=== PATIENT | male | born 1945 | race Caucasian/White ===

== ENCOUNTER → 2018-05-25 | Outpatient (CLI) | payer OTHER, MEDICARE ==
[~2018-05-25] VITALS: Ht 185.4 cm; Wt 102.1 kg
[~2018-05-25] MED LIST: ADULT LOW DOSE81 MG PO; LIPITOR 20 MG T20 M1 PO; MULTIVITAMINS PO; PRILOSEC 20 MG20 MG PO; PRILOSEC OTC20 MG PO; TOPROL XL25 MG PO; VITAMIN D1000 UNI1 PO; XARELTO20 MG PO; ZOLOFT50 MG PO
--- NOTE | ~2018-05-25 | PATH ---
[facility] [place] [address] PATHOLOGY RPT PROCEDURE Name: LINDA KOLB Room #: REG [facility] Marissa.#: [id number] Admission: 05/25/18 Date of : 49 Discharge: Report #: [id number] Path Case #: [id number] [facility] Accession Number: [id number] . 01 Material submitted: . PART A: BX GASTRITIS PART B: BX GE JUNCTION R/O DYSPLASIA PART C: POLYP X 3, HEPATIC FLEXURE PART D: POLYP AT SIGMOID COLON PART E: POLYP AT RECTUM . 01 Clinical history: . History Estrada's, GERD, screening, history of polyps Gastritis, colon polyps, diverticulosis B: Rule out dysplasia . 02 Diagnosis: A. Gastric mucosa, gastritis, endoscopic biopsy: - Mild chronic inflammation. - Negative for intestinal metaplasia or atrophy. - Negative for Helicobacter pylori (properly controlled immunohistochemical stain performed). . B. Gastroesophageal mucosa, GE junction rule out dysplasia, endoscopic biopsy: - Gastric cardia-type mucosa showing moderate chronic inflammation. - Negative for intestinal metaplasia or dysplasia. - Squamous mucosa showing mild to moderate active esophagitis and features of reflux esophagitis. . C. Polyp x 3, at hepatic flexure, endoscopic biopsy: - Multiple fragments showing tubular adenoma. - Negative for high grade dysplasia. . D. Polyp, at sigmoid colon, endoscopic biopsy: - Inflamed hyperplastic polyp. - Negative for dysplasia. . E. Polyp, at rectum, endoscopic biopsy: - Hyperplastic polyp. - Negative for dysplasia. (IUV/db; 05/26/18) LBQ/05/26/2018 . 02 Electronically signed: . Agatha Lockhart MD, Pathologist NPI- [id number] [address] [address] PATHOLOGY RPT PROCEDURE Name: LINDA KOLB W Room #: [facility]#: [id number] Admission: 05/25/18 Date of : 49 Discharge: Report #: [id number] Path Case #: [id number] . 01 Gross description: . A. The specimen is received in formalin, labeled "Linda Kolb BX gastritis" and consists of 5 fragments of soft shen tissue measuring 1.1 x 0.4 x 0.2 cm in aggregate which are entirely submitted in A1. . B. The specimen is received in formalin, labeled "Linda Kolb BX GE junction rule out dysplasia" and consists of multiple fragments of soft shen tissue measuring 1.5 x 0.6 x 0.2 cm in aggregate which are entirely submitted in B1. . C. The specimen is received in formalin, labeled "CortesLinda, polyp x2 at hepatic flexure" and consists of multiple fragments of soft shen-brown tissue ranging from 0.1 x 0.1 cm to 1.3 x 0.5 x 0.2 cm. The 3 largest fragments are submitted in C1 and the rest of the fragments are submitted as an aggregate in C2. . D. The specimen is received in formalin, labeled "Cortes, Linda, polyp at sigmoid colon" and consists of a fragment of soft shen tissue measuring 0.3 x 0.2 x 0.2 cm which is entirely submitted in D1. . E. The specimen is received in formalin, labeled "Cortes, Linda, polyp at rectum" and consists of 3 fragments of soft shen tissue measuring between 0.1 x 0.1 x 0.1 cm and 0.2 x 0.2 x 0.1 cm. They are entirely submitted in E1. (SDY; 05/25/2018) SYU/SYU . 02 Pathologist provided ICD-10: K29.50, D12.3, K63.5, K62.1 . 02 CPT . 921972, 255506, 354090, 538155, 225548, R11976 Specimen Comment: A courtesy copy of this report has been sent to Specimen Comment: [phone], . Specimen Comment: Report sent to / DR BOWDEN Performed at: 01 [facility] [address], [place] [id number] MD Juan Lea MD Phone: [phone] Performed at: [address] [id number] MD Agatha Lockhart MD Phone: [phone]
--- NOTE | ~2018-05-25 | P ---
[facility] [place] [address] [address] PROCEDURE REPORT Name: LINDA VITALE Room #: REG [facility]#: [id number] Admission: 05/25/18 Attend Phys: Alen Mercado MD Discharge: Date of : 49 Report #: [id number] THIS REPORT FOR: //name// CC: Alen Morrissey MD DATE OF SERVICE: 05/25/2018 BRIEF HISTORY: The patient is a 72-year-old male with a history of Estrada esophagus for surveillance examination. He has a history of reflux disease, which was controlled with omeprazole 1 or 2 daily. He has no dysphagia. 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 POSTOPERATIVE DIAGNOSES: 1. Short segment of Estrada esophagus. 2. A 5-7-cm sliding type hiatus hernia. 3. Mild erythematous gastritis. MEDICATIONS: Deep sedation with propofol per anesthesia. SPECIMENS: 1. Biopsy of gastritis, rule out Helicobacter pylori. 2. Biopsy of Estrada esophagus. ESTIMATED BLOOD LOSS: 3 mL. PROCEDURE: EGD with biopsy. FINDINGS: Prior to propofol sedation, procedure of upper endoscopy discussed with the patient as well as potential risks and its complications. He indicates he understands and desires to proceed. DESCRIPTION OF PROCEDURE: With the patient in left lateral decubitus position, the Olympus video endoscope was inserted in the cervical esophagus under direct vision without difficulty. Examination of this organ through its entire length revealed normal esophageal mucosa in the proximal esophagus distally. As we advanced the scope, the mucosa was normal, but the esophagus became very tortuous and the squamocolumnar junction was identified at about 38 cm. A very short segment Estrada mucosa of less than 2 cm was seen. The Estrada mucosa was flat. The scope was advanced into a relatively large hiatus hernia that measured 5-7 cm. The mucosa and hernia was unremarkable. There is a small amount of fluid in the hernia, which was aspirated away. The scope was advanced fully into the stomach, which was examined on end view as well as retroflexed views. There was a pattern of a linear antral gastritis. There were no ulcers [facility] [address] [place] [address] PROCEDURE REPORT Name: LINDA VITALE Room #: [facility]#: [id number] Admission: 05/25/18 Attend Phys: Alen Mercado MD Discharge: Date of : 49 Report #: [id number] or erosions and multiple biopsies were obtained. Upon retroflexion, the hiatus hernia was seen. No other abnormalities were identified. The pylorus, duodenal bulb, and postbulbar sweep were inspected and noted to be unremarkable. At that point, scope was slowly withdrawn and careful circumferential views were obtained. Biopsies obtained of the gastritis. We also obtained biopsies along the squamocolumnar junction to evaluate the Estrada mucosa. Scope was withdrawn. The patient tolerated the procedure well. CONDITION OF THE PATIENT UPON DISCHARGE: Following the procedure, the patient drowsy and prepared for colonoscopy. INSTRUCTIONS TO THE PATIENT AND FAMILY AT THE TIME OF DISCHARGE: Follow up on the path. I advised the patient to continue to use omeprazole and the lowest dose to control his symptoms. There is no evidence of esophagitis at this time. If there is no dysplasia, he should return in 3 years. If dysplasia is present, he may require further intervention. If his reflux symptoms are not well controlled medically, repair of the hiatus hernia and antireflux procedure would be another option for the patient. He will return to care of Dr. Fili Morrissey. We will proceed with colonoscopy at this time. <ELECTRONICALLY SIGNED> By: Alen Mercado MD 06/02/18 1659 [id number] Alen Mercado MD /nt
--- NOTE | ~2018-05-25 | P ---
[facility] [place] [address] PROCEDURE REPORT Name: LINDA VITALE Room #: REG [facility]#: [id number] Admission: 05/25/18 Attend Phys: Alen Mercado MD Discharge: Date of : 49 Report #: [id number] THIS REPORT FOR: //name// CC: Alen Morrissey MD DATE OF SERVICE: 05/25/2018 BRIEF HISTORY: The patient is a 72-year-old male for high-risk screening colonoscopy. He has a history of previous colon polyps with last colonoscopy about 5 years ago. PREOPERATIVE DIAGNOSIS: High-risk screening colonoscopy. POSTOPERATIVE DIAGNOSES: 1. Multiple colon polyps. 2. Moderately severe diverticulosis coli. MEDICATIONS: Deep sedation with propofol per anesthesia. SPECIMENS: 1. Polyps x 3 hepatic flexure. 2. Sigmoid colon polyp. 3. Rectal polyp. ESTIMATED BLOOD LOSS: 3 mL. PROCEDURE: Colonoscopy to cecum and terminal ileum with snare polypectomy and biopsy. FINDINGS: Prior to propofol sedation, procedure of colonoscopy discussed with the patient as well as potential risks and its complications. He indicates he understands and desires to proceed. DESCRIPTION OF PROCEDURE: With the patient in lateral decubitus position, digital examination was completed, which revealed no abnormalities. Subsequently, the Olympus video colonoscope was introduced in the rectum, advanced under direct vision to the cecum. Done with minimal difficulty. The cecum was identified by the ileocecal valve and the appendiceal orifice. I was able to visualize the distal segment of terminal ileum, which was inspected and noted to be unremarkable. At that point, the scope was slowly withdrawn and careful circumferential views obtained including retroflexion of the scope in the ascending colon. Upon slow withdrawal of the scope, the prep was noted to be excellent. The mucosa was within normal limits, normal vascular pattern, normal light reflex. As we withdrew the scope and in particular in the [facility] [address] [place] [address] PROCEDURE REPORT Name: LINDA VITALE Room #: REG [facility] Marissa.#: [id number] Admission: 05/25/18 Attend Phys: Alen Mercado MD Discharge: Date of : 49 Report #: [id number] retroflexed position of the ascending colon, polyp was seen in the hepatic flexure. Eventually, total of 3 polyps were identified in the hepatic flexure. One was a diminutive polyp. The other 2 were flat polyps with the largest bowel 6 mm. The larger ones removed with combination of cold snare polypectomy and with biopsy forceps. The scope was further withdrawn and no additional abnormalities were noted until the left colon was reached and he was noted to have moderately severe diverticular disease on endoscopic evidence of diverticulitis. Scope was further withdrawn. In the distal sigmoid colon, a diminutive polyp was seen, removed by biopsy. Scope was withdrawn in the rectum and upon retroflexion, a flat 4-mm polyp was seen and removed with biopsy forceps. No other abnormalities were seen. Scope was withdrawn. The patient tolerated the procedure well. CONDITION OF THE PATIENT UPON DISCHARGE: Following procedure, the patient drowsy and will be discharged to home when fully ambulatory. INSTRUCTIONS TO THE PATIENT AND FAMILY AT THE TIME OF DISCHARGE: The patient to follow a high-fiber diet, fiber supplementation. We will follow up on the path report. If 3 or more polyps are adenomas, return in 3 years; otherwise, he is to return in 5 years for a followup colonoscopy. He will return to care of Dr. Fili Morrissey, return to see me as needed. Last colonoscopy more than 5 years ago. Withdrawal time from the cecum was 23 minutes 34 seconds. <ELECTRONICALLY SIGNED> By: Alen Mercado MD 06/02/18 1659 [id number] 1709 Alen Mercado MD /nt
== END | disposition home or self-care (01) ==
LOC: GI 06:28
DX: Z12.11 Encounter for screening for malignant neoplasm of colon (principal); D12.3 Benign neoplasm of transverse colon; K63.5 Polyp of colon; K62.1 Rectal polyp; K57.30 Diverticulosis of large intestine without perforation or abscess without bleeding; K29.50 Unspecified chronic gastritis without bleeding; K22.70 Barrett's esophagus without dysplasia; K21.9 Gastro-esophageal reflux disease without esophagitis; K44.9 Diaphragmatic hernia without obstruction or gangrene; E78.00 Pure hypercholesterolemia, unspecified; I10 Essential (primary) hypertension; I48.91 Unspecified atrial fibrillation; F41.9 Anxiety disorder, unspecified; Z87.891 Personal history of nicotine dependence; Z79.01 Long term (current) use of anticoagulants; Z79.899 Other long term (current) drug therapy; Z98.890 Other specified postprocedural states; Z95.5 Presence of coronary angioplasty implant and graft; Z86.010 Personal history of colon polyps; Z87.19 Personal history of other diseases of the digestive system
CPT/HCPCS: 62110; 62900